=== PATIENT | female | born 1990 | race Two or more races ===

== ENCOUNTER 2022-07-13 14:04 | Emergency (ER) | payer OTHER ==
[~2022-07-13] VITALS: Ht 172.7 cm; Wt 94.3 kg
[2022-07-13] MEDS ORDERED: PROMETRIUM200 MG (14:34)
== END 2022-07-13 18:43 | disposition home or self-care (01) ==
LOC: ER 14:04
DX: R11.10 Vomiting, unspecified (principal); Z33.1 Pregnant state, incidental

== ENCOUNTER 2022-07-30 10:03 | Emergency (ER) | payer OTHER ==
[~2022-07-30] VITALS: Ht 172.7 cm; Wt 94.8 kg
[~2022-07-30 10:03] MED LIST: PROMETRIUM200 MG
[2022-07-30] MEDS ORDERED: REGLAN5 MG/5 ML PO (10:38)
[2022-07-30] MEDS ORDERED: PROTONIX40 MG (10:38)
== END 2022-07-30 16:18 | disposition home or self-care (01) ==
LOC: ER 10:03
DX: O21.0 Mild hyperemesis gravidarum (principal); Z3A.14 14 weeks gestation of pregnancy; N39.0 Urinary tract infection, site not specified; Z20.822 Contact with and (suspected) exposure to COVID-19

== ENCOUNTER 2023-01-06 12:29 | Inpatient (IN) | payer OTHER ==
[~2023-01-06] VITALS: Ht 170.2 cm; Wt 103.9 kg
[~2023-01-06 12:29] MED LIST changes: +PROTONIX40 MG; +REGLAN5 MG/5 ML PO
[2023-01-25] MEDS ORDERED: ZOFRAN8 MG PO (06:12)
[2023-01-25] MEDS ORDERED: PRENATAL TABLE1 EAC1 PO (06:12)
[2023-01-25] MEDS ORDERED: BENADRYL25 MG PO (06:13)
[2023-01-25] MEDS ORDERED: PEPCID AC20 MG PO (06:14)
[2023-01-25 08:31] LABS: HEMOGLOBIN 10.5 g/dL (12.0-15.00); MEAN CELL VOLUME 86.2 fL (80.00-100.00); MEAN CORPUSCULAR HEMOGLOBIN 29.1 pg (27.00-32.0); MEAN CORPUSCULAR HGB CONC 33.8 g/dl (32.0-36.0); PLATELET COUNT 284 K/uL (150-450); RED CELL DISTRIBUTION WIDTH 13.8 % (11.5-14.5)
[2023-01-25 08:50] LABS: ALBUMIN 2.5 gm/dL (3.4-5.0); BILIRUBIN TOTAL 0.6 mg/dL (0.3-1.2); CALCIUM 8.8 mg/dL (8.5-10.1); CREATININE SERUM 0.57 mg/dL (0.55-1.02); GFR 123.71; GLOBULINA 3.7 G/DL (2.4-3.5); POTASSIUM 3.93 mEq/L (3.5-5.1); TOTAL PROTEIN 6.2 gm/dL (6.4-8.2)
[2023-01-25 09:13] LABS: INR < 0.93; PARTIAL THROMBOPLASTIN TIME 23.6 SECONDS (22.0-34.0); PROTHROMBIN TIME 9.7 SECONDS (9.0-11.5)
[2023-01-26 08:05] LABS: HEMATOCRIT 24.7 % (36.0-45.00); MEAN CELL VOLUME 88.1 fL (80.00-100.00); MEAN CORPUSCULAR HEMOGLOBIN 29.5 pg (27.00-32.0); MEAN CORPUSCULAR HGB CONC 33.5 g/dl (32.0-36.0); PLATELET COUNT 253 K/uL (150-450); RED BLOOD COUNT 2.81 M/uL (4.00-6.00); RED CELL DISTRIBUTION WIDTH 13.8 % (11.5-14.5)
[2023-01-26 08:11] LABS: HEMOGLOBIN 8.3 g/dL (12.0-15.00)
== END 2023-01-28 18:29 | disposition home or self-care (01) | DRG 788 ==
LOC: LDR 01-25 07:56 → OB/GYN 01-25 07:56
PROVIDERS: Obstetrics & Gynecology; ADMIT Obstetrics & Gynecology Gynecology; ATTEND Obstetrics & Gynecology Gynecology
PROC: 4A1HXCZ Monitoring of Products of Conception, Cardiac Rate, External Approach (ICD-10-PCS; 2023-01-25)
PROC: 10D00Z1 Extraction of Products of Conception, Low, Open Approach (ICD-10-PCS; principal; 2023-01-25 09:00)
DX: O82 Encounter for cesarean delivery without indication (principal); O62.0 Primary inadequate contractions; Z3A.34 34 weeks gestation of pregnancy; Z37.0 Single live birth; Z20.822 Contact with and (suspected) exposure to COVID-19

== ENCOUNTER 2023-01-23 06:33 | Outpatient (CLI) | payer OTHER | END 2023-01-23 07:35 | disposition home or self-care (01) | LOC: NST 06:33 | PROVIDERS: ATTEND Obstetrics & Gynecology Gynecology | DX: Z34.83 Encounter for supervision of other normal pregnancy, third trimester (principal) ==

== ENCOUNTER 2023-01-25 04:57 | Outpatient (CLI) | payer OTHER ==
[2023-01-25] MEDS ORDERED: ZOFRAN8 MG PO (06:12)
[2023-01-25] MEDS ORDERED: PRENATAL TABLE1 EAC1 PO (06:12)
[2023-01-25] MEDS ORDERED: BENADRYL25 MG PO (06:13)
[2023-01-25] MEDS ORDERED: PEPCID AC20 MG PO (06:14)
== END 2023-01-25 07:19 | disposition still patient (30) ==
LOC: OBS/DEL 04:57
PROVIDERS: ATTEND Obstetrics & Gynecology
DX: O26.893 Other specified pregnancy related conditions, third trimester (principal); Z3A.39 39 weeks gestation of pregnancy

== ENCOUNTER 2025-03-05 17:20 | Outpatient (CLI) | payer OTHER ==
[2025-03-05 16:27] VITALS: BP 106/72
[~2025-03-05 17:20] MED LIST changes: +BENADRYL25 MG PO; +PEPCID AC20 MG PO; +PRENATAL TABLE1 EAC1 PO; +ZOFRAN8 MG PO
[2025-03-05] MEDS ORDERED: ZOFRAN8 MG PO (17:41)
[2025-03-05] MEDS ORDERED: BENADRYL25 MG PO (17:41)
[2025-03-05] MEDS ORDERED: PROTONIX40 MG PO (17:42)
[2025-03-05] MEDS ORDERED: PEPCID AC20 MG PO (17:43)
[2025-03-05] MEDS ORDERED: ONDANSETRON 4 MG TAB.RAPDIS PO SCH (18:00)
[2025-03-05 19:06] VITALS: BP 106/72
[2025-03-05] MEDS ORDERED: DIPHENHYDRAMINE HCL 25 MG CAPSULE PO SCH (21:00)
[2025-03-06] MEDS ORDERED: PANTOPRAZOLE SODIUM 40 MG TABLET.DR PO SCH (09:00)
== END 2025-03-05 19:04 | disposition home or self-care (01) ==
LOC: OBS/DEL 17:20
PROVIDERS: ATTEND Obstetrics & Gynecology
DX: O98.813 Other maternal infectious and parasitic diseases complicating pregnancy, third trimester (principal); Z3A.33 33 weeks gestation of pregnancy